=== PATIENT | female | born 2000 | race African-American/Black ===

== ENCOUNTER 2020-12-14 21:37 | Inpatient (IN) ==
[~2020-12-14 21:37] MED LIST: *HR* Nalbuphine 10 MG/ML AMPUL IV PRN; Famotidine 20 MG/2 ML VIAL IVP PRN; Lidocaine 1% 20 ML MDV INFILT PRN; Metoclopramide 10 MG/2 ML VIAL IVP PRN; Naloxone 0.4 MG/ML INJ IVP PRN; Ondansetron 4 MG/2 ML VIAL IVP PRN; Ringers Solution, Lactated 1,000 ML IVC SCH; Ringers Solution, Lactated 1,000 ML ONE
[2020-12-14 21:54] LABS: Basophils % 0.2 %; Eosinophils # 0.1 K/mcL (0.0-0.6); Eosinophils % 0.6 %; Hematocrit 35.4 % (35.3-44.9); Hemoglobin 11.8 g/dL (11.5-15.4); Immature Granulocytes % 0.8 % (0-4); Lymphocytes # 2.2 K/mcL (0.6-4.6); Lymphocytes % 16.7 %; Mean Corpuscular HGB Conc 33.3 g/dL (31.6-35.5); Mean Corpuscular Hemoglobin 29.9 pg (28.0-33.3); Mean Corpuscular Volume 89.6 fL (83.0-100.0); Mean Platelet Volume 9.9 fL (9.4-12.4); Monocytes # 1.4 K/mcL (0.0-1.3); Monocytes % 10.7 %; Neutrophils # 9.3 K/mcL (1.6-8.9); Platelet Count 305 K/mcL (140-400); Red Blood Count 3.95 M/mcL (3.82-4.97); White Blood Count 13.2 K/mcL (4.3-11.1)
[2020-12-14] MEDS ORDERED: *HR* FentaNYL (PF) 100 MCG/2 ML VIAL ONE (21:55)
[2020-12-14] MEDS ORDERED: *HR* Morphine Sulfate/PF 10 MG/10 ML AMPUL ONE (21:55)
[2020-12-14] MEDS ORDERED: *HR* Phenylephrine 10 MG/ML VIAL ONE (21:59)
[2020-12-14] MEDS ORDERED: Ondansetron 4 MG/2 ML VIAL ONE (22:12)
[2020-12-14] MEDS ORDERED: Ringers Solution, Lactated 1,000 ML ONE (22:23)
[2020-12-14] MEDS ORDERED: *HR* Oxytocin 10 UNIT/ML VIAL IM ONE (22:23)
[2020-12-14] MEDS ORDERED: Acetaminophen IV 1,000 MG/100 ML BAG IVPB ONE (22:33)
[2020-12-14] MEDS ORDERED: *HR* Midazolam HCl 2 MG/2 ML VIAL ONE (22:39)
[2020-12-14] MEDS ORDERED: flumazeniL 0.5 MG/5 ML VIAL IVP ONE (22:44)
[2020-12-14] MEDS ORDERED: *HR* OxyCODONE Immed Rel 5 MG TABLET PO PRN (22:54)
[2020-12-14] MEDS ORDERED: *HR* FentaNYL (PF) 100 MCG/2 ML VIAL IVP PRN (22:54)
[2020-12-14] MEDS ORDERED: Naloxone 0.4 MG/ML INJ IVP PRN (22:54)
[2020-12-14] MEDS ORDERED: Ondansetron 4 MG/2 ML VIAL IVP PRN (22:54)
[2020-12-14] MEDS ORDERED: Promethazine 6.25 MG in Water for inj. (sterile) 20 ML IVPB PRN (22:54)
[2020-12-14] MEDS ORDERED: *HR* Nalbuphine 10 MG/ML AMPUL IV PRN (22:58)
[2020-12-14] MEDS ORDERED: Ketorolac 30 MG/ML VIAL ONE (23:03)
[2020-12-14 23:05] LABS: Influenza A PCR Negative (Negative); Influenza B PCR Negative (Negative); Resp. Syncytial Virus PCR Negative (Negative)
[2020-12-14 23:08] LABS: SARS-CoV-2 by PCR (In House) Negative (Negative)
[2020-12-14 23:59] LABS: Amphetamine Screen,Urine Negative ng/mL (Cutoff=1000); Barbiturate Screen,Urine Negative ng/mL (Cutoff=200); Benzodiazepines Screen,Urine Negative ng/mL (Cutoff=200); Cannabinoid Screen,Urine Negative ng/mL (Cutoff = 50); Cocaine Screen,Urine Negative ng/mL (Cutoff= 300); Opiate Screen,Urine Negative ng/mL (Cutoff=300); Phencyclidine Screen,Urine Negative ng/mL (Cutoff=25)
[2020-12-15] MEDS ORDERED: Rho Immune Globulin 1,500 UNIT SYRINGE IM ONE (01:57)
[2020-12-15] MEDS ORDERED: Ringers Solution, Lactated 1,000 ML IVC SCH (01:57)
[2020-12-15] MEDS ORDERED: Oxytocin 20 units/ LR 1000 mL 20 UNIT/1,000 ML BAG IVC SCH (01:57)
[2020-12-15] MEDS ORDERED: Simethicone 80 MG TAB.CHEW PO PRN (01:57)
[2020-12-15] MEDS ORDERED: Metoclopramide 10 MG/2 ML VIAL IVP PRN (01:57)
[2020-12-15] MEDS ORDERED: Ondansetron 4 MG/2 ML VIAL IVP PRN (01:57)
[2020-12-15] MEDS: Ibuprofen 600 MG TABLET PO SCH ×3 (03:01→15:53)
[2020-12-15] MEDS: Acetaminophen 325 MG TABLET PO SCH ×3 (03:01→15:53)
[2020-12-15] MEDS: *HR* OxyCODONE Immed Rel 5 MG TABLET PO PRN ×2 (05:09→15:52)
[2020-12-15] MEDS ORDERED: Prenatal Vit/FA 1 EACH TABLET PO SCH (09:00)
[2020-12-15] MEDS: cephALEXin 500 MG CAPSULE PO SCH ×3 (09:08→20:06)
[2020-12-15] MEDS: metroNIDAZOLE 500 MG TABLET PO SCH ×3 (09:08→20:06)
[2020-12-15 11:17] LABS: Basophils % 0.1 %; Eosinophils % 0.1 %; Hematocrit 29.4 % (35.3-44.9); Immature Granulocytes % 0.7 % (0-4); Lymphocytes # 1.1 K/mcL (0.6-4.6); Lymphocytes % 6.9 %; Mean Corpuscular HGB Conc 32.7 g/dL (31.6-35.5); Mean Corpuscular Hemoglobin 29.9 pg (28.0-33.3); Mean Corpuscular Volume 91.6 fL (83.0-100.0); Mean Platelet Volume 9.8 fL (9.4-12.4); Monocytes # 1.3 K/mcL (0.0-1.3); Monocytes % 8.3 %; Neutrophils # 13.4 K/mcL (1.6-8.9); Platelet Count 232 K/mcL (140-400); Red Blood Count 3.21 M/mcL (3.82-4.97); Segmented Neutrophils % 83.9 %
[2020-12-15 11:31] LABS: Hemoglobin 9.6 g/dL (11.5-15.4)
[2020-12-15 20:31] VITALS: TEMP 98.7
[2020-12-16] MEDS: Ibuprofen 600 MG TABLET PO SCH ×2 (00:16→08:07)
[2020-12-16] MEDS: Acetaminophen 325 MG TABLET PO SCH ×2 (00:16→08:06)
[2020-12-16] MEDS: *HR* OxyCODONE Immed Rel 5 MG TABLET PO PRN ×2 (00:20→08:06)
[2020-12-16 07:23] VITALS: BP 107/62; PULSE 75; O2SAT 97
[2020-12-16] MEDS: metroNIDAZOLE 500 MG TABLET PO SCH (08:05)
[2020-12-16] MEDS: cephALEXin 500 MG CAPSULE PO SCH (08:05)
== END 2020-12-16 14:30 | disposition home or self-care (01) | DRG 540 ==
LOC: 1NENULAB → 1NENUOBS 12-15 01:26
PROVIDERS: ADMIT Obstetrics & Gynecology; ATTEND Obstetrics & Gynecology